=== PATIENT | male | born 1975 | race American Indian/Alaskan Native ===

== ENCOUNTER 2022-01-25 18:44 | Emergency (ER) | payer OTHER ==
[2022-01-25] MEDS ORDERED: diphenhydrAMINE 25 MG CAP PO ONE (19:28)
[2022-01-25 23:53] VITALS: BP 157/110
[2022-01-26] MEDS ORDERED: METOCLOPRAMIDE 10 MG TAB PO ONE (00:41)
[2022-01-26] MEDS ORDERED: diphenhydrAMINE 25 MG CAP PO ONE (00:41)
[2022-01-26] MEDS ORDERED: predniSONE 20 MG TAB PO ONE (00:41)
--- NOTE | 2022-01-26 01:46 | Emergency Department Report ---
ED General Adult HPI - General Chief complaint: Allergic Reaction Stated complaint: ALLERGIC REACTION (BEE STING) Time Seen by Provider: 01/26/22 00:40 Source: patient Mode of arrival: Ambulatory Limitations: No Limitations - History of Present Illness Initial comments: Patient 46-year-old male who presents for bee sting to right anterior chest wall. Patient states history of allergies to bee stings. States burning stinging erythema to right chest wall. Symptoms are improved with Benadryl given in triage. There is no fevers no chills no shortness of breath no dizziness lightheadedness no chest pain. Patient did not use EpiPen today. Patient advised a history of hypertension no other allergies or history. Patient rates symptoms at 4/10 at this time. Patient denies shortness of breath there is no tongue swelling. Patient is alert oriented x3 amatory with steady gait and with no acute distress. Patient drove self to ED. - Related Data Previous Rx's Medication Instructions Recorded Last Taken Type EPINEPHrine [Epipen 2-Malachi] 0.3 mg IM PRN PRN #1 each 01/26/22 Unknown Rx Famotidine [Pepcid] 20 mg PO BID 7 Days #14 tablet 01/26/22 Unknown Rx diphenhydrAMINE [Benadryl CAP] 25 mg PO Q8HR PRN #21 capsule 01/26/22 Unknown Rx predniSONE [Deltasone] 40 mg PO DAILY 5 Days #10 tab 01/26/22 Unknown Rx Allergies Allergy/AdvReac Type Severity Reaction Status Date / Time No Known Allergies Allergy Verified 01/25/22 19:28 ED Review of Systems ROS: Stated complaint: ALLERGIC REACTION (BEE STING) Other details as noted in HPI Constitutional: denies: chills, fever Eyes: denies: eye pain, eye discharge, vision change ENT: denies: ear pain, throat pain Respiratory: denies: cough, shortness of breath, wheezing Cardiovascular: denies: chest pain, palpitations Endocrine: no symptoms reported Gastrointestinal: denies: abdominal pain, nausea, vomiting, diarrhea Genitourinary: denies: urgency, dysuria Musculoskeletal: denies: back pain, joint swelling, arthralgia Skin: other (Erythema on the right anterior chest wall no hives no lesions no open wounds.). denies: rash, lesions Neurological: denies: headache, weakness, paresthesias, vertigo Psychiatric: denies: anxiety, depression Hematological/Lymphatic: denies: easy bleeding, easy bruising ED Past Medical Hx - Medications Home Medications: Home Medications Medication Instructions Recorded Confirmed Last Taken Type EPINEPHrine [Epipen 2-Malachi] 0.3 mg IM PRN PRN #1 each 01/26/22 Unknown Rx Famotidine [Pepcid] 20 mg PO BID 7 Days #14 tablet 01/26/22 Unknown Rx diphenhydrAMINE [Benadryl CAP] 25 mg PO Q8HR PRN #21 capsule 01/26/22 Unknown Rx predniSONE [Deltasone] 40 mg PO DAILY 5 Days #10 tab 01/26/22 Unknown Rx ED Physical Exam - General Limitations: No Limitations General appearance: alert, in no apparent distress - Head Head exam: Present: atraumatic, normocephalic - Eye Eye exam: Present: normal appearance, PERRL, EOMI. Absent: conjunctival injection, nystagmus Pupils: Present: normal accommodation - ENT ENT exam: Present: mucous membranes moist. Absent: normal orophraynx - Expanded ENT Exam Expanded Throat exam: Positive: normal inspection, other (Uvula midline no tongue swelling). Negative: tonsillar erythema, tonsillomegaly, tonsillar exudate, R peritonsillar mass, L peritonsillar mass - Neck Neck exam: Present: normal inspection, full ROM. Absent: tenderness, lymphadenopathy - Respiratory Respiratory exam: Present: normal lung sounds bilaterally. Absent: respiratory distress, wheezes, stridor, chest wall tenderness - Cardiovascular Cardiovascular Exam: Present: regular rate, normal rhythm, normal heart sounds. Absent: systolic murmur, diastolic murmur, rubs, gallop - GI/Abdominal GI/Abdominal exam: Present: soft, normal bowel sounds. Absent: distended, tenderness - Rectal Rectal exam: Present: deferred - Extremities Exam Extremities exam: Present: normal inspection, full ROM, normal capillary refill - Back Exam Back exam: Present: normal inspection, full ROM. Absent: CVA tenderness (R), CVA tenderness (L) - Neurological Exam Neurological exam: Present: alert, oriented X3, CN II-XII intact, normal gait - Expanded Neurological Exam Expanded Patient oriented to: Present: person, place, time Speech: Present: fluid speech Motor strength exam: RUE: 5, LUE: 5, RLE: 5, LLE: 5 Best Eye Response (Santo): (4) open spontaneously Best Motor Response ([place]): (6) obeys commands Best Verbal Response ([place]anda): (5) oriented [place] Total: 15 - Psychiatric Psychiatric exam: Present: normal affect, normal mood - Skin Skin exam: Present: warm, dry, intact, normal color, erythema (Mild erythema to her right anterior chest wall no lesions no hives no weeping). Absent: rash ED Course Vital Signs 01/25/22 01/25/22 19:25 23:52 Temperature 98.5 F 98.6 F Pulse Rate 80 89 Respiratory 18 18 Rate Blood Pressure 147/95 Blood Pressure 157/110 [Right] O2 Sat by Pulse 100 99 Oximetry ED Medical Decision Making - Medical Decision Making This is an allergic reaction to bee sting. Symptoms are resolved with medications given in ED plan refill medications. Follow-up primary care doctor in 2 to 3 days. EpiPen teaching completed. Patient verbalized agreement understanding with same patient DC'd home in stable condition. Lung sounds are clear throughout airway is patent. There is no respiratory distress. Critical care attestation.: If time is entered above; I have spent that time in minutes in the direct care of this critically ill patient, excluding procedure time. ED Disposition Clinical Impression: Allergic reaction to insect sting Qualifiers: Encounter type: initial encounter Injury intent: accidental or unintentional Qualified Code(s): T63.481A - Toxic effect of venom of other arthropod, accidental (unintentional), initial encounter Disposition: 01 HOME / SELF CARE / HOMELESS Is pt being admited?: No Does the pt Need Aspirin: No Condition: Stable Additional Instructions: Take medications as prescribed, follow-up with your doctor in 2 to 3 days. Return to emergency department should symptoms worsen. Prescriptions: diphenhydrAMINE [Benadryl CAP] 25 mg PO Q8HR PRN #21 capsule PRN Reason: allergies predniSONE [Deltasone] 40 mg PO DAILY 5 Days #10 tab EPINEPHrine [Epipen 2-Malachi] 0.3 mg IM PRN PRN #1 each PRN Reason: severe allergy symptoms Famotidine [Pepcid] 20 mg PO BID 7 Days #14 tablet Referrals: ZARINA OCONNOR MD [Staff Physician] - 3-5 Days Forms: Work/School Release Form(ED) Time of Disposition: 01:49
== END 2022-01-26 01:58 | disposition home or self-care (01) ==
LOC: ED 18:44
DX: T63.441A Toxic effect of venom of bees, accidental (unintentional), initial encounter (principal); Y92.89 Other specified places as the place of occurrence of the external cause
CPT/HCPCS: 99282

== ENCOUNTER 2022-03-10 09:24 | Outpatient (CLI) | payer OTHER ==
[2022-03-10 12:04] LABS: Basophils % (Auto) 0.3 % (0.0-1.8); Eosinophils # (Auto) 0.2 K/mm3 (0.0-0.4); Eosinophils % (Auto) 1.5 % (0.0-4.3); Hematocrit 46.6 % (35.5-45.6); Hemoglobin 15.8 gm/dl (11.8-15.2); Lymphocytes # (Auto) 2.2 K/mm3 (1.2-5.4); Lymphocytes % (Auto) 16.1 % (13.4-35.0); Mean Corpuscular HGB Conc 34 % (32-34); Mean Corpuscular Volume 100 fl (84-94); Monocytes # (Auto) 1.2 K/mm3 (0.0-0.8); Monocytes % (Auto) 8.8 % (0.0-7.3); Platelet Count 301 K/mm3 (140-440); Red Blood Count 4.65 M/mm3 (3.65-5.03); Red Cell Distribution Width 14.6 % (13.2-15.2)
[2022-03-10 12:19] LABS: Alanine Aminotransferase 11 units/L (7-56); Albumin 5.1 g/dL (3.9-5); BUN/Creatinine Ratio 10; Blood Urea Nitrogen 10 mg/dL (9-20); Calcium 9.9 mg/dL (8.4-10.2); Chol/HDL Ratio 2.94 %; HDL Cholesterol 59 mg/dL (40-59); Hemolysis Index 12; LDL Cholesterol,Direct 94 mg/dL (50-130)
== END 2022-03-10 09:25 | disposition home or self-care (01) ==
LOC: LABHHL 09:24
PROVIDERS: ATTEND Internal Medicine
DX: I10 Essential (primary) hypertension (principal); R73.9 Hyperglycemia, unspecified; E55.9 Vitamin D deficiency, unspecified; R53.83 Other fatigue
CPT/HCPCS: 36415; 80053; 80061; 82306; 83036; 84443; 85025

== ENCOUNTER 2022-03-15 09:23 | Outpatient (CLI) | payer OTHER ==
--- NOTE | 2022-03-15 10:55 | XRay Report ---
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 There is mild facet arthropathy at both levels. Signer Name: Todd Faye MD Signed: 03/15/2022 10:50 AM Workstation Name: [email or web address]
== END 2022-03-15 09:24 | disposition home or self-care (01) ==
LOC: US 09:23 → XRAY 09:24
PROVIDERS: ATTEND Internal Medicine
DX: M48.07 Spinal stenosis, lumbosacral region (principal); M47.816 Spondylosis without myelopathy or radiculopathy, lumbar region
CPT/HCPCS: 72100